=== PATIENT | female | born 1975 | race American Indian/Alaskan Native ===

== ENCOUNTER 2022-04-24 01:06 | Emergency (ER) | payer MEDICAID, OTHER ==
[2022-04-24] MEDS ORDERED: LORazepam 1 MG Tab PO ONE (01:33)
[2022-04-24] MEDS ORDERED: Aspirin 81 MG Tab.Chew PO ONE (01:35)
[2022-04-24 02:06] LABS: TROPONIN I HIGH SENSITIVITY 4.3 pg/mL (<=60.3)
== END 2022-04-24 02:38 ==
LOC: JP.ED 01:06
DX: F41.0 Panic disorder [episodic paroxysmal anxiety] (principal); I25.10 Atherosclerotic heart disease of native coronary artery without angina pectoris; Z88.0 Allergy status to penicillin
CPT/HCPCS: 36415; 80048; 84484; 85025; 99285; A9270; 93010; 99283